=== PATIENT | female | born 1970 | race Caucasian/White ===

== ENCOUNTER → 2016-03-22 | Day surgery (SDC) | payer OTHER ==
[~2016-03-22] MED LIST: BUPIVACAINE HCL PF 0.5% 10 ML VIAL ONE; CALCCHW9 CHEW; DIOV320T PO; ISOSULFAN BLUE 50 MG/5 ML VIAL SQ ONE; KETOROLAC TROMETHAMINE 30 MG/ML (IVP) VIAL ONE; LACTATED RINGER'S 1000 ML INJ 1,000 ML ONE; LISI10TA3 PO; METO50CR PO; METO50TA11 PO; MIDAZOLAM HCL 2 MG/2 ML VIAL ONE; MULT1TAB84 PO; OMEP20CA5 PO; OMEP20TA PO; ONDANSETRON HCL 4 MG/2 ML VIAL IV PUSH ONE; PROPOFOL 200 MG/20 ML AMP IV ONE; SERT-129 PO; SODIUM CHLORIDE 0.9% INJ 10 ML ONE; VALS1TAB70 PO; ceFAZolin 2 GM PREMIX 50 ML ONE; oxyCODONE/ACETAMINOPHEN 5 MG/325 MG TAB ONE
--- NOTE | 2016-03-22 17:39 | TN ---
cc: DARRION BOWEN M.D. DATE OF SURGERY: 03/22/2016 PRINCIPAL DIAGNOSIS Left breast cancer. PROCEDURE PERFORMED Left breast needle-localized lumpectomy and left axillary sentinel lymph node biopsy. SURGEON Niki Bowen MD ANESTHESIA General via LMA device. INDICATION The patient is a 45-year-old female recently diagnosed with a clinical stage I left breast cancer. She has opted for breast conservation and now presents for the procedure. Because of her young age, she did undergo hereditary breast cancer testing and has no mutation associated with breast cancer. FINDINGS AT THE TIME OF SURGERY Four sentinel lymph nodes were identified. #1 had a count of 500 and was not blue and #2 had a count of 77 and was not blue. Lymph node #3 was identified later in the procedure and it had a count of 43,086 and was 2+ blue and sentinel lymph node #4 was 1+ blue with a count of 193. Touch prep analysis was not performed. Specimen mammogram did demonstrate an intact wire and the biopsy clip and mass were within the specimen. PROCEDURE PERFORMED After informed consent was obtained and site verification was performed, the patient was brought to the radiology suite where she underwent peritumoral radionuclide injection as well as needle localization of her left breast mass. She was then brought to the major operating room where she was given a single dose of IV Ancef and sequential compression hose were placed. The left breast and arm were prepped and draped in sterile fashion and she underwent general anesthesia via an LMA device. An incision was anesthetized at the inferior aspect of the left axillary hairline and both sharp and electrocautery dissection were performed to divide the clavipectoral fascia and enter the level I axilla. Two mid level I sentinel nodes were identified and circumferentially dissected free from surrounding structures using the harmonic scalpel and these were lymph nodes 1 and 2 with the counts as noted. Later on during the procedure, some blue lymphatics were identified high in level I and this identified sentinel lymph nodes 3 and 4 which were dissected free from surrounding structures using the harmonic scalpel and also sent as sentinel node specimens with the counts as noted. Good hemostasis was noted in the axilla and the wound was closed using interrupted 3-0 Vicryl subcutaneous sutures and a 4-0 Monocryl subcuticular suture. Steri-Strips and a sterile dressing were applied. A periareolar skin incision was anesthetized in the 4 o'clock location of the left breast and sharp dissection was then performed until the wire entry point through the skin was identified and secured with a hemostat. The wire was cut off at the skin with pin cutters. A 2-0 silk transfixion suture was placed at the wire entry point into the breast tissue which became a dissecting suture as well. Both sharp and electrocautery dissection were then performed circumferentially around the wire and the specimen was oriented with two sutures laterally, one short suture superiorly and one long suture anteriorly. The specimen was sent to mammography with the findings as noted and was then sent for permanent pathologic evaluation. Inspection of the specimen did demonstrate that the inferior and medial margins appeared close and each of these was sharply re-incised with a stitch on the new margin and they were sent as permanent specimens. Hemostasis was obtained with electrocautery and the wound was closed using interrupted 3-0 Vicryl subcutaneous sutures and a 4-0 Monocryl subcuticular suture. Steri-Strips and sterile dressings were applied to both wounds. The patient tolerated the procedure well with an estimated blood loss of 50 cc and she was extubated in the operating room and brought to the recovery room in good condition. All sponge and needle counts were correct at the conclusion of the case. MD NIKA Prara/LUI /2:13 PM /5:23 PM
== END | disposition home or self-care (01) ==
LOC: ESDC 09:21
PROVIDERS: ATTEND Surgery
DX: C50.912 Malignant neoplasm of unspecified site of left female breast (principal)
CPT/HCPCS: 00400; 01610; 19125; 38525; 38792; J0690; J1885; J2250; J2405; J3010; J7120; Q9968; 88307

== ENCOUNTER 2016-06-04 16:25 | Inpatient (IN) | payer OTHER ==
[~2016-06-04] VITALS: Ht 167.6 cm; Wt 77.9 kg
[~2016-06-04 16:25] MED LIST changes: -BUPIVACAINE HCL PF 0.5% 10 ML VIAL ONE; -DIOV320T PO; -ISOSULFAN BLUE 50 MG/5 ML VIAL SQ ONE; -KETOROLAC TROMETHAMINE 30 MG/ML (IVP) VIAL ONE; -LACTATED RINGER'S 1000 ML INJ 1,000 ML ONE; -METO50CR PO; -METO50TA11 PO; -MIDAZOLAM HCL 2 MG/2 ML VIAL ONE; -MULT1TAB84 PO; -OMEP20CA5 PO; -ONDANSETRON HCL 4 MG/2 ML VIAL IV PUSH ONE; -PROPOFOL 200 MG/20 ML AMP IV ONE; -SODIUM CHLORIDE 0.9% INJ 10 ML ONE; -VALS1TAB70 PO; -ceFAZolin 2 GM PREMIX 50 ML ONE; -oxyCODONE/ACETAMINOPHEN 5 MG/325 MG TAB ONE
[2016-06-05] MEDS ORDERED: POVIDONE IODINE 5% (ANTISEPSIS KIT) 4 APPLICATIONS EACH NARE PRN (06:30)
[2016-06-05] MEDS ORDERED: ONDANSETRON HCL 4 MG/2 ML VIAL IV PUSH SCH (06:30)
[2016-06-05] MEDS ORDERED: SODIUM CHLORID 0.9% 500 ML IV PRN (06:30)
[2016-06-05] MEDS ORDERED: CHLORHEXIDINE GLUCONATE 2 % 1 PACK (2 CLOTHS) TOPICAL PRN (06:30)
[2016-06-05] MEDS ORDERED: ceFAZolin 2 GM PREMIX 50 ML IV SCH (06:30)
[2016-06-05] MEDS ORDERED: INSULIN HUMAN REGULAR 1,000 UNITS/10 ML VIAL SQ PRN (06:30)
[2016-06-05] MEDS ORDERED: LACTATED RINGER'S 1000 ML IV PRN (06:30)
[2016-06-05] MEDS ORDERED: METOPROLOL TARTRATE 25 MG TAB PO PRN (06:30)
[2016-06-05] MEDS ORDERED: MULT1TAB84 PO (06:32)
[2016-06-05 06:37] VITALS: BP 120/74; PULSE 54; RESP 18; TEMP 98; O2SAT 100
[2016-06-05] MEDS ORDERED: BUPIVACAINE/EPINEPHRINE 0.5% PF 30 ML VIAL ONE (07:26)
[2016-06-05] MEDS ORDERED: DEXAMETHASONE SOD PHOS 4 MG/ML VIAL ONE (07:43)
[2016-06-05] MEDS ORDERED: MIDAZOLAM HCL 2 MG/2 ML VIAL ONE (07:43)
[2016-06-05] MEDS ORDERED: LIDOCAINE 1%/EPINEPHrine 1:100,000 SOLN 50 ML VIAL ONE (07:44)
[2016-06-05] MEDS ORDERED: GENTAMICIN SULFATE 80 MG/2 ML VIAL ONE ×3 (07:50→13:07)
[2016-06-05] MEDS ORDERED: VANCOMYCIN HCL 1000 MG VIAL ONE (08:21)
--- NOTE | 2016-06-05 09:41 | HHI.PR ---
Immediate Post Op Note Procedure Date: Jun 05, 2016 Pre Op Diagnosis: (1) Ductal carcinoma in situ (DCIS) of left breast Post Op Diagnosis: (1) Ductal carcinoma in situ (DCIS) of left breast Surgeon: Erin Griffin Mincemeat Maker(s): None Procedure: Left skin sparing mastectomy Findings: No gross evidence of residual disease. Complications: None Specimen(s) removed: Left and right breast Anesthesia: General Drains: MASSIEL Patient to: PACU Patient Condition: Good Implant/Devices: SEE IMPLANT LOG (if applicable) Date/Time of Procedure: SEE SURGICAL CARE RECORD Erin Griffin MD Jun 05, 2016 09:41
--- NOTE | 2016-06-05 09:58 | MP ---
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 PROCEDURE PERFORMED Bilateral mastectomy with immediate latissimus flap and implant reconstruction. SURGEON Erin Bowen MD and Chris Yañez MD ANESTHESIA General endotracheal INDICATION The patient is a 46-year-old female who required a lumpectomy for ductal carcinoma in situ of the left breast. Final pathology demonstrated multiple positive margins with an extensive DCIS component and she has opted for bilateral mastectomy with immediate reconstruction. She previously had a sentinel lymph node biopsy which was negative for metastatic disease. She now presents for the procedure. FINDINGS AT THE TIME OF SURGERY Normal anatomy was identified with no gross evidence of residual disease. PROCEDURE PERFORMED After informed consent was obtained and site verification was performed, the patient was brought to the major operating room where she underwent general endotracheal anesthesia and a right internal jugular central line was placed. She was given a single dose of IV Ancef, as well as IV vancomycin and sequential compression hose were placed. The breasts, neck, and abdomen down to the upper thigh, as well as the back was prepped and draped in sterile fashion. An elliptical incision was marked out and both retroglandular and subcutaneous infusion of tumescent solution was then performed bilaterally. Sharp dissection was then performed in the elliptical incision to develop the plane between the subcutaneous fat and anterior breast fascia superiorly to the clavicle, medially to the parasternal area, laterally to the axilla, and inferiorly to the anterior rectus sheath. The breast was then dissected off the pectoralis muscle including the pectoralis fascia with the specimen. The breast was amputated in the axilla and oriented with the skin anterior, one short suture superiorly, and one long suture laterally. It was weighed and sent in formalin for permanent pathologic evaluation. Reconstruction was then performed by Dr. Yañez and will be recorded on a separate dictation. MD NIKA Parra/ANG /9:45 AM /9:52 AM
[2016-06-05] MEDS ORDERED: LACTATED RINGER'S 1000 ML INJ 4,000 ML IV ONE (12:00)
[2016-06-05] MEDS ORDERED: ePHEDrine/NS 25 MG/5 ML SYR IV ONE (12:00)
[2016-06-05] MEDS ORDERED: PROPOFOL 200 MG/20 ML AMP IV ONE (12:00)
[2016-06-05] MEDS ORDERED: ONDANSETRON HCL 4 MG/2 ML VIAL IV PUSH ONE (12:20)
[2016-06-05] MEDS ORDERED: ceFAZolin INJ 1,000 MG VIAL ONE ×2 (12:56→13:07)
[2016-06-05] MEDS ORDERED: MUPIROCIN 2% OINT 22 GM TUBE ONE (14:19)
[2016-06-05] MEDS ORDERED: BACITRACIN TOP OINT 15 GM TUBE ONE (14:21)
[2016-06-05] MEDS ORDERED: MUPIROCIN 2% OINT 22 GM TUBE TOPICAL ONE (14:42)
[2016-06-05] MEDS ORDERED: fentaNYL CITRATE 250 MCG/5 ML AMP ONE (15:11)
[2016-06-05] MEDS ORDERED: *morphine SULFATE 8 MG/ML PERIprocedure ONLY ONE ×2 (15:13→16:48)
[2016-06-05 15:26] LABS: HEMATOCRIT 26.7 % (35.0-46.0)
[2016-06-05 15:29] LABS: REVIEW FLAG FINAL
[2016-06-05] MEDS ORDERED: KETOROLAC TROMETHAMINE 30 MG/ML (IVP) VIAL ONE (15:34)
[2016-06-05 17:25] VITALS: BP 101/55; PULSE 88; RESP 16; TEMP 97.6; O2SAT 97
[2016-06-05 17:40] VITALS: BP 109/61; PULSE 85; RESP 16; TEMP 97.8; O2SAT 97
[2016-06-05 18:20] VITALS: BP 102/54; PULSE 82; RESP 20; TEMP 96.3; O2SAT 98
[2016-06-05] MEDS ORDERED: MORPHINE SULFATE 4 MG/ML INJ IV PRN (18:45)
[2016-06-05] MEDS ORDERED: MUPIROCIN 2% OINT 22 GM TUBE TOPICAL SCH (19:00)
[2016-06-05] MEDS ORDERED: ONDANSETRON HCL 4 MG/2 ML VIAL IV PUSH PRN (19:00)
[2016-06-05] MEDS: ACETAMINOPHEN 1000 MG/100 ML VIAL IV SCH (19:17)
[2016-06-05 20:08] VITALS: BP 94/55; PULSE 76; RESP 17; TEMP 96.9; O2SAT 97
[2016-06-05 21:14] LABS: REVIEW FLAG FINAL
[2016-06-06] VITALS: BP 89/50; PULSE 68; RESP 16; TEMP 96.1; O2SAT 97
[2016-06-06] MEDS: ACETAMINOPHEN 1000 MG/100 ML VIAL IV SCH ×2 (01:17→10:05)
[2016-06-06 04:00] VITALS: BP 98/53; PULSE 84; RESP 17; TEMP 96.9; O2SAT 96
[2016-06-06] MEDS: traMADol HCL 50 MG TAB PO PRN ×2 (05:12→10:03)
[2016-06-06 05:41] LABS: HEMATOCRIT 26.6 % (35.0-46.0); REVIEW FLAG FINAL
[2016-06-06 07:30] VITALS: BP 92/55; PULSE 76; RESP 20; TEMP 98.5; O2SAT 98
[2016-06-06 07:45] VITALS: BP 92/50; PULSE 78; RESP 20; TEMP 98.6; O2SAT 98
[2016-06-06 08:00] VITALS: BP 92/55; PULSE 76; RESP 20; TEMP 98.5; O2SAT 98
[2016-06-06 11:25] LABS: REVIEW FLAG FINAL
--- NOTE | 2016-06-06 11:54 | MP ---
cc: CHRIS YAÑEZ M.D. DATE OF SURGERY 06/05/2016 PREOPERATIVE DIAGNOSIS Ductal carcinoma invasive left breast with high-risk breast cancer right breast desire for bilateral mastectomy and breast reconstruction. POSTOPERATIVE DIAGNOSIS Ductal carcinoma invasive left breast with high-risk breast cancer right breast desire for bilateral mastectomy and breast reconstruction. OPERATION PERFORMED 1. Left modified radical mastectomy, Dr. Griffin. 2. Right modified/modified mastectomy. 3. Right latissimus dorsi myocutaneous flap reconstruction of the chest wall. Right low pectoralis major muscle flap construction of the chest wall. Right breast reconstruction with Independence style 4000 Siltex texture gel filled implant with reference #[id number], lot #[id number], serial #[id number], 600 cc. 4. Left at the latissimus dorsi myocutaneous flap reconstruction of the chest wall, left pectoralis major flap reconstruction of the breast chest wall and left breast reconstruction with Independence style 4000 Siltex textured high-profile gel filled mammary prosthesis reference 5. #[id number], lot #[id number], serial #[id number] Chris Yañez [employer]ER [employer] Alison Hansen ANESTHESIA General endotracheal ESTIMATED BLOOD LOSS 500 cc FLUID REPLACEMENT 4000 cc crystalloid PATHOLOGY Right and left breast tissue with axillary roll of nodes level I with sutures in these areas. DRAINS One 7-mm Jordon-Merino drain to the right back, one to the right axilla and breast reconstruction, one to the left back and one to the left axilla and breast reconstruction, a total of four drains. COMPLICATIONS None URINE OUTPUT 500 cc of urine. DESCRIPTION OF OPERATION The patient was seen in the office the day before surgery. The latissimus dorsi muscle was marked. Elliptical excision of skin to be taken with the latissimus dorsi muscle was marked obliquely across the latissimus dorsi muscles starting medially, superiorly and going laterally inferiorly. This was marked on both sides of the back. The ellipse of skin then removed from the breast was marked to take both nipple-areolar complexes in a transverse incision across the breast and chest. The patient was seen in the preop area, given IV vancomycin and Ancef, brought to the operating room where she was placed on the operating table. She was prewarmed with a bear hugger, pneumatic compression garments placed on her lower extremities. She was placed under general endotracheal anesthesia. She then had a central line placed by Anesthesia internal jugular. The patient was then prepped and draped from her chin to her mid thigh circumferentially on a special tulip drape. The patient had a bear hugger placed on her head and her lower extremities to maintain her body temperature. The breasts were infiltrated subcutaneously submammary with Ringer's lactate with Xylocaine and epinephrine as was the axilla and the area of the latissimus dorsi myocutaneous flap. The mastectomy on the left was performed by Dr. Griffin and dictated by her. The mastectomy on the right was then done by Dr. Yañez and I am dictating it now. The elliptical excision was made across the breast. A subcutaneous dissection was carried out up superiorly to just below the clavicle to just off the midline to down below the inframammary crease and out into the axilla, across the axilla to the latissimus dorsi muscle. The breast tissue was dissected off the chest wall and pectoralis major muscle taking some of the pectoralis fascia with it using electrocautery. Meticulous hemostasis was obtained with electrocautery. The lower level lymph nodes at level one were removed and a suture was placed in the axillary tail of Almeida in the left lower lymph nodes. The specimen sent to pathology for examination. Meticulous hemostasis obtained with electrocautery. Latissimus dorsi muscle was then dissected from the serratus anterior and off the chest wall taking care to preserve the long thoracic nerve and the thoracodorsal nerve, artery and vein. The same was done on the left side. The wounds were packed with gauze, lap and temporarily closed on the left with skin nishant. The patient was then turned to the left side down, right side. An axillary roll was placed and she was padded and very carefully positioned. The ellipse of skin that had been marked on the back was incised full-thickness down through the skin, subcutaneous tissue, superficial fascia and down to the deep fat and down to the latissimus dorsi muscle. Dissection of the skin was dissected up to and over the top of the latissimus dorsi muscle into the axilla. It was then dissected down to the iliac crest inferiorly. The muscle was dissected off the chest wall and from the trapezius and the serratus anterior. It was transected down at the level of the iliac crest and rotated into the axillary defect and released so that it could be used to reconstruct the chest wall and used for the breast reconstruction. Meticulous hemostasis obtained with electrocautery. The back and the axillary were drained with two stab wounds and the anterior axillary area. Using a mosquito hemostat, the 7 mm drains were inserted, one was placed across the back and one was placed up into the axilla. They were sutured in place with 2-0 Vicryl sutures. The back wound was then closed with a running 2-0 PDS starting medially and running to retirement and then starting laterally running half way. The wound was left open and Lara was squirted into the wound in hopes that we could minimize bleeding and hopefully minimize the drainage. The wound was tied. The wound was then closed with interrupted buried subcuticular 3-0 and 4-0 Monocryl sutures. Dermabond applied. The area was allowed to dry. The patient was turned from the right side up to the right side down repositioning and carefully padded and axillary roll was inserted. A similar procedure was carried out on latissimus dorsi myocutaneous flap and the wound was closed in a similar manner to the right side. The patient was then placed in the supine position and the keys bag was removed. She was reprepped and draped in a sterile fashion. The nishant removed where the skin had been closed over the breast. The pectoralis major muscle was then elevated on the right chest wall off the chest wall and released completely up about three [address] medially to be used as flap to over lie the implant. The latissimus dorsi, myocutaneous flap was then rotated into the defect. The flap was then sutured to the pectoralis fascia just below the clavicle with a running 2-0 PDS suture starting laterally and going medially and tying medially, then going from medially, inferiorly, tying inferiorly. A second suture was placed to the anterior axillary area with 2-0 PDS suture closing the flap to the chest wall, running down the chest wall anterior axillary area. The flap was turned over and the pectoralis major muscle was then sutured to the back of the latissimus dorsi myocutaneous flap. It was obvious that we would be able to close the skin over this and had good skin quality so that the skin and fat on the latissimus dorsi myocutaneous flap was removed. The trial implant was placed. A 600 cc implant was tried. It looked about right. It had good projection. The implant was removed. The pocket was instilled with Bacitracin, Ancef, gentamicin and Marcaine. The surgeon's gloves were changed and then using a no-touch technique as possible, the implant had been soaking in the bacitracin, ancef, gentamicin, Marcaine solution. It was inserted with a Ramírez funnel. The latissimus dorsi muscle was then further closed to complete a complete brassier of muscle over the implant. The skin was closed with interrupted vertical mattress sutures and then skin nishant. The attention was then directed to the left breast reconstruction. The pectoralis major was elevated in a similar manner. The latissimus dorsi muscle was then sutured into the chest wall in a similar manner. The latissimus dorsi myocutaneous flap skin and fat were removed. The implant was inserted with a no-touch technique as possible after instilling the pocket with bacitracin, ancef, gentamicin solution. The pocket was completely closed with running 2-0 PDS sutures. The skin was closed with vertical mattress sutures of 4-0 Prolene and skin nishant. The wounds were all cleaned. At the end of the operation, the patient had good projection and good symmetry. The skin flaps were all warm, pink and viable with good capillary filling. The wounds were dressed with Bactroban ointment, Xeroform gauze, 4x4s. The back was dressed with Xeroform gauze and 4x4s and foam tape. The breasts were placed into a bra and held with the dressings in place with the bra. The patient tolerated the procedure extremely well, was awakened, extubated, transferred to the stretcher and sent to recovery in satisfactory condition. She will probably be discharged tomorrow. MD ERNIE Beltre/ANG /2:43 PM /11:28 AM
[2016-06-06 11:56] VITALS: BP 112/59; PULSE 79; RESP 20; TEMP 99.5; O2SAT 98
--- NOTE | 2016-06-06 13:54 | HHI.PR ---
Subjective Subjective Notes Tolerating po. Good pain control with ultram. Objective Vitals/I&O Vital Signs Date Time Temp Pulse Resp B/P Pulse Ox O2 Delivery O2 Flow Rate FiO2 06/06/16 11:56 99.5 79 20 112/59 98 06/06/16 07:30 Room Air 06/05/16 18:33 2.00 Left drain 165/225 Right drain 250/125. Labs Laboratory Tests Test 06/05/16 06/05/16 06/05/16 06/06/16 15:09 15:50 20:45 05:20 Hemoglobin 10.0 10.3 9.3 Hematocrit 26.7 30.0 26.6 Blood Type O NEGATIVE Antibody Screen NEGATIVE Crossmatch Leukocyte-Reduced Red Blood Cells Blood Bank Comment Test 06/06/16 11:15 Hemoglobin 9.9 Hematocrit 28.0 Cardiovascular: Regular Lungs: Clear Narrative Exam Chest wall flaps viable. No seroma. Wounds clean and dry with no infection. A/P Assessment and Plan Doing well. Ready for discharge. Discharge Planning DC home today. Erin Griffin MD Jun 06, 2016 13:54
--- NOTE | 2016-06-06 13:56 | HHI.DS ---
Discharge Summary Admission Date Jun 05, 2016 at 05:29 Admitting Diagnosis CBC/BMP: 06/06/16 1115 Significant Findings Laboratory Tests Test 06/05/16 06/05/16 06/06/16 06/06/16 15:09 20:45 05:20 11:15 Hemoglobin 10.0 GM/DL 10.3 GM/DL 9.3 GM/DL 9.9 GM/DL (11.6-15.3) (11.6-15.3) (11.6-15.3) (11.6-15.3) Hematocrit 26.7 % 30.0 % 26.6 % 28.0 % (35.0-46.0) (35.0-46.0) (35.0-46.0) (35.0-46.0) PE at Discharge Chest wall flaps viable. No seroma. Wounds clean and dry with no infection. Pt Condition on Discharge: Stable Discharge Disposition: Discharge Home Discharge Instructions DIET: Follow Instructions for: As Tolerated, No Restrictions Activities you can perform: Shower/Bath Activities to Avoid: Lifting/Bending, Strenuous Activity, Bathing Erin Griffin MD Jun 06, 2016 13:56
== END 2016-06-06 15:24 | disposition home or self-care (01) | DRG 583 ==
LOC: HSDI 06-05 05:29 → N06A 06-05 18:04
PROVIDERS: ADMIT Surgery; ATTEND Surgery
PROC: 0HRV0JZ Replacement of Bilateral Breast with Synthetic Substitute, Open Approach (ICD-10-PCS; 2016-06-05)
PROC: 30233N1 Transfusion of Nonautologous Red Blood Cells into Peripheral Vein, Percutaneous Approach (ICD-10-PCS; 2016-06-05)
PROC: 0HTV0ZZ Resection of Bilateral Breast, Open Approach (ICD-10-PCS; principal; 2016-06-05 07:50)
PROC: 0HRV075 Replacement of Bilateral Breast using Latissimus Dorsi Myocutaneous Flap, Open Approach (ICD-10-PCS; 2016-06-05 07:50)
DX: D05.12 Intraductal carcinoma in situ of left breast (principal); I10 Essential (primary) hypertension; Z88.1 Allergy status to other antibiotic agents; Z88.5 Allergy status to narcotic agent; Z88.8 Allergy status to other drugs, medicaments and biological substances
CPT/HCPCS: 36430; 82948; 85014; 85018; 86850; 86900; 86901; 86920; 88307; C1789; J0131; J0690; J1100; J1580; J1885; J2250; J2270; J2405; J3010; J3370; J7120; P9016

== ENCOUNTER → 2017-03-04 | Outpatient (CLI) | payer OTHER ==
[~2017-03-04] MED LIST changes: +CALC1TAB87 PO; +MULT-65 PO; +MULT1TAB84 PO; -OMEP20TA PO; +OMEP20TA93 PO
[2017-03-04 11:52] LABS: AUTOMATED NEUTROPHIL # 3.1 TH/MM3 (1.8-7.7); BASOPHIL % 0.7 % (0.0-2.0); EOSINOPHIL # 0.1 TH/MM3 (0-0.4); EOSINOPHIL % 2.2 % (0.0-4.0); HEMATOCRIT 38.2 % (35.0-46.0); HEMOGLOBIN 13.2 GM/DL (11.6-15.3); LYMPH % 24.1 % (9.0-44.0); LYMPHOCYTE # 1.1 TH/MM3 (1.0-4.8); MEAN CELL VOLUME 87.5 FL (80.0-100.0); MEAN CORPUSCULAR HEMOGLOBIN 30.3 PG (27.0-34.0); MEAN CORPUSCULAR HGB CONC 34.6 % (32.0-36.0); MEAN PLATELET VOLUME 8.2 FL (7.0-11.0); MONO % 6.1 % (0.0-8.0); MONOCYTE # 0.3 TH/MM3 (0-0.9); NEUT % 66.9 % (16.0-70.0); PLATELET COUNT 195 TH/MM3 (150-450); RED BLOOD COUNT 4.36 MIL/MM3 (4.00-5.30); RED CELL DISTRIBUTION WIDTH 13.3 % (11.6-17.2); WHITE BLOOD COUNT 4.7 TH/MM3 (4.0-11.0)
[2017-03-04 12:09] LABS: BILIRUBIN, URINE NEG (NEG); BLOOD, URINE NEG (NEG); GLUCOSE,URINE NEG (NEG); HYALINE CAST, URINE 1 /lpf (RARE); KETONE, URINE NEG (NEG); NITRITE,URINE NEG (NEG); URINE COLOR YELLOW (YELLW/STRAW); URINE LEUKOCYTE ESTERASE NEG (NEG)
== END ==
LOC: CPRE 10:57
PROVIDERS: ATTEND Obstetrics & Gynecology
DX: Z01.812 Encounter for preprocedural laboratory examination (principal); R10.2 Pelvic and perineal pain
CPT/HCPCS: 36415; 81001; 85025

== ENCOUNTER → 2017-05-28 | Outpatient (CLI) | payer OTHER ==
[~2017-05-28] MED LIST changes: -CALCCHW9 CHEW; -LISI10TA3 PO; +LOSA25TA PO; -MULT1TAB84 PO
[2017-05-28 15:58] LABS: BASOPHIL % 0.8 % (0.0-2.0); EOSINOPHIL # 0.2 TH/MM3 (0-0.4); EOSINOPHIL % 2.6 % (0.0-4.0); HEMATOCRIT 38.6 % (35.0-46.0); HEMOGLOBIN 13.2 GM/DL (11.6-15.3); LYMPH % 24.1 % (9.0-44.0); LYMPHOCYTE # 1.4 TH/MM3 (1.0-4.8); MEAN CELL VOLUME 84.7 FL (80.0-100.0); MEAN CORPUSCULAR HGB CONC 34.3 % (32.0-36.0); MEAN PLATELET VOLUME 8.1 FL (7.0-11.0); MONO % 5.2 % (0.0-8.0); MONOCYTE # 0.3 TH/MM3 (0-0.9); NEUT % 67.3 % (16.0-70.0); PLATELET COUNT 214 TH/MM3 (150-450); RED BLOOD COUNT 4.56 MIL/MM3 (4.00-5.30); RED CELL DISTRIBUTION WIDTH 14.6 % (11.6-17.2)
[2017-05-28 16:14] LABS: BILIRUBIN, URINE NEG (NEG); BLOOD, URINE NEG (NEG); GLUCOSE,URINE NEG (NEG); KETONE, URINE NEG (NEG); MUCUS URINE FEW /lpf (OCC); NITRITE,URINE NEG (NEG); SQUAMOUS EPITHELIAL CELL URINE <1 /hpf (0-5); URINE COLOR LIGHT-YELLOW (YELLW/STRAW); URINE LEUKOCYTE ESTERASE NEG (NEG)
== END ==
LOC: CPRE 15:20
PROVIDERS: ATTEND Obstetrics & Gynecology
DX: Z01.812 Encounter for preprocedural laboratory examination (principal); N93.8 Other specified abnormal uterine and vaginal bleeding
CPT/HCPCS: 36415; 81001; 85025

== ENCOUNTER → 2017-06-04 | Day surgery (SDC) | payer OTHER ==
[~2017-06-04] VITALS: Ht 165.1 cm; Wt 101.8 kg
[~2017-06-04] MED LIST changes: +*morphine SULFATE 4 MG/ML PERIprocedure ONLY ONE; +ACETAMINOPHEN 1000 MG/100 ML 100 ML IV ONE; +ACETAMINOPHEN/HYDROcodone 325 MG/10 MG TAB PO PRN; +ACETAMINOPHEN/HYDROcodone 325 MG/5 MG TAB PO PRN; +APREPITANT 40 MG CAP PO SCH; +BUPIVACAINE HCL PF 0.25% 30 ML VIAL ONE; +CHLORHEXIDINE GLUCONATE 2 % 1 PACK (2 CLOTHS) TOPICAL PRN; +DEXAMETHASONE SOD PHOS 4 MG/ML VIAL IV ONE; +DO NOT ADM ANY ANTICOAGULANT DRUGS PRN; +GLYCOPYRROLATE 1 MG/5 ML SYRINGE IV PUSH ONE; +HYDROmorphone HCL PF 2 MG/ML VIAL IV PUSH PRN; +IBUPROFEN 600 MG TAB PO PRN; +INSULIN HUMAN REGULAR 1,000 UNITS/10 ML VIAL SQ PRN; +KETOROLAC TROMETHAMINE 30 MG/ML (IVP) VIAL IVP PRN; +LACTATED RINGER'S 1000 ML INJ 1,000 ML IV SCH; +LACTATED RINGER'S 1000 ML IV PRN; +LIDOCAINE HCL 1% PF 5 ML SYRINGE OTHER ONE; +LORazepam 0.5 MG TAB PO PRN; +METOPROLOL TARTRATE 25 MG TAB PO PRN; +NEOSTIGMINE 5 MG/5 ML SYRINGE IV PUSH ONE; +ONDANSETRON HCL 4 MG/2 ML VIAL IV ONE; +ONDANSETRON HCL 4 MG/2 ML VIAL IVP PRN; +PHENYLEPH/NS 1000 MCG/10 ML SYR IV ONE; +POVIDONE IODINE 5% (ANTISEPSIS KIT) 4 APPLICATIONS EACH NARE PRN; +PROPOFOL 200 MG/20 ML AMP IV ONE; +ROCURONIUM INJ 50 MG/5 ML SYRINGE IV PUSH ONE; +SODIUM CHLORID 0.9% 500 ML IV PRN; +SODIUM CHLORIDE 0.9% FLUSH 10 ML FLUSH IV FLUSH PRN; +SODIUM CHLORIDE 0.9% FLUSH 10 ML FLUSH IV FLUSH SCH; +ceFAZolin 2 GM PREMIX 100 ML IV ONE; +ceFAZolin 2 GM in NS 100 ML IV SCH; +diphenhydrAMINE HCL 25 MG CAP PO PRN; +ePHEDrine/NS 25 MG/5 ML SYRINGE IV ONE; +fentaNYL CITRATE 250 MCG/5 ML AMP ONE; +hydrALAZINE HCL 20 MG/ML VIAL IV ONE
--- NOTE | 2017-06-04 13:26 | MP ---
cc: Pan Menendez MD DATE OF OPERATION: 06/04/2017 PREOPERATIVE DIAGNOSES: Patient with a history of breast cancer, genetic risk for [employer] malignancy. History of dysmenorrhea and chronic pelvic pain. PROCEDURE PERFORMED: Exam under anesthesia, da María Elena robotic-assisted total laparoscopic hysterectomy with bilateral salpingo-oophorectomy, lysis of adhesions. POSTOPERATIVE DIAGNOSIS: Patient with a history of breast cancer, genetic risk for [employer] malignancy. History of dysmenorrhea and chronic pelvic pain. Patient with stage II endometriosis and pelvic adhesions. TYPE OF ANESTHESIA: General with endotracheal intubation. ESTIMATED BLOOD LOSS: 50 mL. DRAINS: Sewell to gravity. OPERATIVE FINDINGS: The patient had adhesions involving the omentum and sigmoid to the left side wall and adnexa on the left. The patient had evidence of endometriosis with scarring of the cul-de-sac and both right and left ovarian fossa. No other significant findings were evident. Uterus was approximately 9-10 weeks in size. PROCEDURE: The patient received Ancef 2 grams prophylactically. She underwent general anesthesia with endotracheal intubation. She had an OG tube placed. She was carefully positioned on the operative table with appropriate padding and the lower extremities were secured in Alejo stirrups with sequential's placed on the lower extremities for VTE prophylaxis. She was prepped and draped. Time-out was conducted, agreed by all present in the room. Sewell catheter was then inserted by sterile technique and the patient was examined. The patient had a previous endometrial ablation that required careful dissection to place the VCare, which was a medium sized. The VCare was placed without difficulty. There was no perforation of the uterine cavity. Retractors were removed. Gloves were changed. The abdomen was examined. The previous laparoscopic incisions were noted. The umbilical port was injected with approximately 2 mL of 0.25% plain Marcaine. A Veress needle was inserted gently with entry into the peritoneal cavity, insufflation was conducted at low pressure. A 5 mm Visiport trocar was then gently placed through the umbilical plate with direct entry into the peritoneal cavity without difficulty. Accessory ports were then placed using a 8 mm trocar, one placed on the left flank and 2 on the right. These were placed under direct vision and without vascular complication. The umbilical port was then traded to a 12 mm camera port. Cold scissors were then used to take down the omental adhesion that was predominantly on the left side and then once this was complete, the da María Elena patient's cart was side docked, the #2 arm on the left and the #1 and the 3 on the right. Monopolar scissors were attached to the #2 and a bipolar fenestrated grasper on the #1 and a fenestrated grasper on the #3. A 0 degree lens camera was used. There were no collisions on the operative arms. There was good articulation and visualization. The attention was directed to the surgeon car where good visualization was noted. Anatomic review was made. Dissection initiated by taking down the remaining filmy adhesions of the rectosigmoid and omentum on the left, examining the adjacent vital structures and then dividing the round ligaments bilaterally allowing dissection of the peritoneum to take down the anterior peritoneal reflection allowing the bladder to be pushed off the lower uterine segment. No active bleeding was incurred throughout the entire procedure. All pedicles were secured easily with simple either monopolar or bipolar energy. The left side was then dissected opening the retroperitoneal space, identifying the ureter on the left and then identifying the infundibulopelvic vessels, ligating them securely and this allowed dissection of the ovary and tube to be included with the uterine specimen. The uterine artery and vein were skeletonized and ligated on the left and then the contralateral side was dissected in the exact same fashion with a retroperitoneal identification of the ureter and then dissection of the infundibulopelvic vessels and uterine artery and vein. Once this was complete, the colpotomy incision was made making a circumferential incision around the vaginal cuff to remove the cervix intact with the uterus, fallopian tubes, and ovaries. Once this was removed, there was evidence of a large peritoneal cyst in the cul-de-sac. This was elevated. It was not attached to any structure. This was brought through and taken out of the vaginal vault by the cosmetic sales assistant. A #1 Stratafix suture was then used to close the vaginal cuff in a linear fashion with good result. The cuff integrity was then checked by placement of a sponge stick through the vaginal opening by the cosmetic sales assistant and the integrity of the cuff closure was documented with good result. The suture needle was trimmed and secured and then the da María Elena patient's cart was undocked. Straight laparoscopy was introduced. The suture needle was removed. A full count was made and correct. The pelvis was irrigated, observed for any active bleeding off pressure, which there was none. Both ureters were peristalsing normally. The bladder was intact and clear urine was draining throughout the entire case. At the completion of the procedure, the umbilical port was addressed by closing it with a CrossBow device with a #1 Vicryl suture. This was tested digitally with good result. At this point, the pneumoperitoneum was decompressed through the remaining trocars. The trocars were removed and observed for any active bleeding, which there was none and the skin incisions were closed with a subcuticular stitch of 4-0 Monocryl with Steri-Strips and Band-Aids. Full and final count was correct at the end of the case. The patient was stable. She was extubated and taken to the recovery room. Clear urine was draining through the Sewell. There was no vaginal bleeding. MD DOLLY Esqueda/ELIN , 12:55 PM , 01:25 PM
[2017-06-04 15:44] VITALS: BP 115/66; PULSE 83; RESP 18; TEMP 97.8; O2SAT 95
== END | disposition home or self-care (01) ==
LOC: HSDC 08:35
PROVIDERS: ATTEND Obstetrics & Gynecology
DX: N94.6 Dysmenorrhea, unspecified (principal); D25.2 Subserosal leiomyoma of uterus; G89.29 Other chronic pain; R10.2 Pelvic and perineal pain; Z85.3 Personal history of malignant neoplasm of breast; Z15.04 Genetic susceptibility to malignant neoplasm of endometrium; E28.2 Polycystic ovarian syndrome; I10 Essential (primary) hypertension; K21.9 Gastro-esophageal reflux disease without esophagitis
CPT/HCPCS: 00840; 58571; 86850; 86900; 86901; 88307; J0131; J0360; J1100; J1885; J2270; J2370; J2405; J2710; J3010; J7120; J8501